=== PATIENT | male | born 1955 | race Caucasian/White ===

== ENCOUNTER → 2024-02-25 16:55 | Outpatient (REF) | payer MEDICARE, SELFPAY | LOC: RAD 16:55 | PROVIDERS: ATTENDING PHYSICIAN Internal Medicine | DX: R60.0 Localized edema (principal) | CPT/HCPCS: 93971 ==

== ENCOUNTER → 2024-03-01 10:51 | Outpatient (REF) | payer MEDICARE, SELFPAY ==
[2024-03-01 13:03] LABS: ALT (SGPT) 26 U/L (0-50); AST (SGOT) 28 U/L (17-59); Albumin 3.7 g/dl (3.5-5.0); Alkaline Phosphatase 62 U/L (38-126); Blood Urea Nitrogen 9 mg/dl (9-20); Calcium 9.6 mg/dl (8.4-10.2); Carbon Dioxide 26 mmol/L (22-30); Chloride 102 mmol/L (98-107); Glucose 148 mg/dl (70-99); Potassium 4.2 mmol/L (3.5-5.1); Sodium 133 mmol/L (135-145); Total Bilirubin 0.6 mg/dl (0.2-1.3); Total Protein 5.5 g/dl (6.3-8.2); eGFR > 60.00
== END ==
LOC: REG 10:51
PROVIDERS: ATTENDING PHYSICIAN Internal Medicine
DX: E11.9 Type 2 diabetes mellitus without complications (principal); I10 Essential (primary) hypertension; E87.1 Hypo-osmolality and hyponatremia
CPT/HCPCS: 36415; 80053

== ENCOUNTER 2024-04-16 03:54 | Emergency (ER) | payer MEDICARE, SELFPAY ==
[2024-04-16 03:56] VITALS: BP 190/93
[2024-04-16 04:00] VITALS: BP 175/87
[2024-04-16 04:10] VITALS: BMI 25.6
[2024-04-16 05:00] VITALS: BP 175/87
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
== END 2024-04-16 05:48 | disposition home or self-care (01) ==
LOC: EMR 03:54
PROVIDERS: EMERGENCY PHYSICIAN Student in an Organized Health Care Education/Training Program; FAMILY PHYSICIAN Internal Medicine
DX: S62.317A Displaced fracture of base of fifth metacarpal bone, left hand, initial encounter for closed fracture (principal); S20.212A Contusion of left front wall of thorax, initial encounter; W19.XXXA Unspecified fall, initial encounter
CPT/HCPCS: 29125; 99284; 71101; 73130

== ENCOUNTER → 2024-07-19 11:35 | Outpatient (REF) | payer MEDICARE, SELFPAY | LOC: RAD 11:35 | PROVIDERS: FAMILY PHYSICIAN Internal Medicine; OTHER PHYSICIAN Specialist | DX: M25.519 Pain in unspecified shoulder (principal) | CPT/HCPCS: 73030 ==

== ENCOUNTER → 2024-10-29 17:16 | Outpatient (REF) | payer MEDICARE, SELFPAY ==
[2024-10-30 10:57] LABS: Rheumatoid Agglutinin Less Than 10 IU (<10 IU)
[2024-10-31 17:03] LABS: CCP Antibody IgG/IgA 2 Units (0-19)
[2024-10-31 18:21] LABS: HLA-B27 Negative (Negative)
== END ==
LOC: REG 17:16
PROVIDERS: ATTENDING PHYSICIAN Physician Assistant; FAMILY PHYSICIAN Orthopaedic Surgery Hand Surgery
DX: L40.52 Psoriatic arthritis mutilans (principal); M79.641 Pain in right hand
CPT/HCPCS: 36415; 86200; 86430; 86812

== ENCOUNTER → 2025-02-09 15:16 | Outpatient (REF) | payer MEDICARE, SELFPAY ==
[2025-02-09 17:14] LABS: Hematocrit 30.3 % (39.0-52.0); Hemoglobin 9.8 g/dL (13.0-18.0); Mean Corp Hgb Conc. 32.3 g/dL (33.0-37.0); Mean Corpuscular Volume 66.7 fL (80.0-94.0); Nucleated Red Blood Cells % 0 % (-); Platelet Count 256 10^3/uL (130-400); Red Cell Dist. Width 17.4 % (11.5-14.5)
[2025-02-09 17:24] LABS: Blood Urea Nitrogen 10 mg/dl (9-20); Calcium 8.8 mg/dl (8.4-10.2); Carbon Dioxide 30 mmol/L (22-30); Chloride 102 mmol/L (98-107); Glucose 99 mg/dl (70-99); Potassium 4.0 mmol/L (3.5-5.1); Sodium 135 mmol/L (135-145); eGFR > 60.00
== END ==
LOC: REG 15:16
PROVIDERS: ATTENDING PHYSICIAN Orthopaedic Surgery; FAMILY PHYSICIAN Internal Medicine
DX: Z01.818 Encounter for other preprocedural examination (principal)
CPT/HCPCS: 36415; 80048; 85025; 93005

== ENCOUNTER 2025-04-27 20:49 | Emergency (ER) | payer MEDICARE, SELFPAY ==
[2025-04-27 20:51] VITALS: BP 164/74
--- NOTE | 2025-04-28 00:01 | ED.GENMED ---
History of Present Illness
General
Chief Complaint: Musculo-Skeletal Complaint
Source: patient
Exam Limitations: none
Time Seen by Provider: 04/27/25 23:39
Nursing documentation reviewed up to this point in time: agreed with
History of Present Illness
History of Present Illness:
69-year-old male with a past medical history of spinal stenosis, osteoarthritis, asthma, who presents emergency department today with concerns of left hip pain and thigh pain beginning around a week and a half ago. Patient describes the pain is
brutal and he reports that it is difficult to morning caregiver certain positions. He has been walking without any difficulty. The patient follows with a pain management doctor who did an injection within the hip joint which provided him no relief. The
patient has since tried rubbing alcohol and lidocaine cream over the area vigorously which has not helped. He does not take any blood thinners. He denies any trauma, any recent falls. He reports that the pain will start in the hip and radiate to
the thigh. Sometimes the pain will start in the back. He denies any urinary fecal incontinence, denies any numbness or tingling in the genital region. He denies any numbness or tingling in his lower extremities. The pain management doctor has
him taking oxycodone 20 mg but he has recently run out and does not see his pain management doctor for another 2 weeks. He reports that he is currently awaiting 2 surgeries: 1 for his lumbar region and another procedure for his fingers which has
been postponed due to his elevated blood pressures. He also is currently following with a steamboat pilot. He also reports that his steamboat pilot has him taking 5 mg of prednisone every day which seem to slightly help his other symptoms. He
denies any fevers or chills, chest pain, shortness of breath, abdominal pain. He denies any burning with urination, urinary frequency, hematuria.
Review of Systems
Review of Systems
All Other Systems: ROS reviewed and negative except as documented in HPI and ROS
Phy Exam
Physical Exam
Physical Exam:
General: Alert, no acute distress.
Skin: Warm, dry. Area of ecchymosis noted to left lateral thigh no tenderness to palpation, no swelling or induration, no asymmetric swelling of the lower extremities.
Head: Normocephalic, atraumatic.
Neck: Supple, trachea midline.
Eye, Ears, Nose, Tongue: Oral mucosa moist.
Cardiovascular: Normal peripheral perfusion, No edema.
2+ PT and PT pulses b/l
Respiratory: Respirations are non-labored.
Abdomen: Soft and non-tender to palpation
Back: Normal range of motion, Normal alignment. No midline spinal tenderness.
Musculoskeletal: No tenderness to palpation of the left hip joint, no tenderness to palpation of the left thigh.
Neurological: Alert and oriented to person, place, time, and situation, No focal neurological deficit observed. Sensation intact.
Psychiatric: Cooperative, appropriate mood & affect.
Course
Orders/Labs/Results
Orders:
Orders
04/27/25 22:28
CR Lumbar Spine 2 Or 3 Views Urgent
Comment:
Reason For Exam: worsening pain
Hip, Left 2-3 Views [CR Hip - LT w/wo Pel 2-3 Vw*] Urgent
Comment:
Reason For Exam: worsening pain, bursitis?
Include a pelvis x-ray?: No
04/27/25 23:56
Ketorolac [Toradol] 30 mg IM NOW STA
Oxycodone/Acetaminophen [Percocet 5/325] 1 tablet PO NOW STA
04/27/25 23:57
Lidocaine [Lidocaine 4% Patch] 1 patch TOPICAL DAILY ONE
Apply Lidocaine patch(s) to:: left hip/left paralumbar
Vital Signs
Initial and Last Documented VS:
Initial Vital Signs
Temp Pulse Resp BP Pulse Ox
98.6 F 86 20 164/74 98
04/27/25 20:51 04/27/25 20:51 04/27/25 20:51 04/27/25 20:51 04/27/25 20:51
Last Documented Vital Signs
Temp Pulse Resp BP Pulse Ox
98.6 F 86 20 164/74 98
04/27/25 20:51 04/27/25 20:51 04/27/25 20:51 04/27/25 20:51 04/28/25 00:01
MDM/Problems Addressed
Differential Diagnosis Includes:
ddx include hip bursitis, osteoarthritis, rheumatoid arthritis, malignant fracture
MDM/Problems Addressed:
Plan:
-check x-rays
-toradol, percocet, lidocaine patch

69-year-old male with a past medical history of spinal stenosis, osteoarthritis, asthma, who presents emergency department today with concerns of left hip pain and thigh pain beginning around a week and a half ago. Patient describes the pain is
brutal and he reports that it is difficult to morning caregiver certain positions. He has no associated fevers or chills, urinary or fecal incontinence, saddle paresthesias. He is able to walk and bear weight on my exam without any difficulty. He
demonstrates a steady gait.
He does have an area of ecchymosis noted to the left lateral thigh. No concern for hematoma. No concern for retroperitoneal hemorrhage. I suspect the bruising is from self-induced trauma as patient reports he has been vigorously rubbing alcohol
and lidocaine cream on the area multiple times a day for the past few days. He was sent for x-rays of the hip and lumbar spine which showed no acute fracture or dislocation but did show some degenerative changes. Patient did have pain improvement
with Percocet, Toradol, and lidocaine patch. He reports that he is not seeing his pain management doctor for some time and is requesting 20 mg oxycodone tablets to bridge the gap. I advised patient that I will give him a few Percocet tablets as
needed and some lidocaine patches but he will need to see his primary pain control physician for continued prescriptions. Patient expressed understanding. Patient stable for discharge.
Chronic conditions affecting care:
asthma, spinal stenosis
*Pulse Oximetry
SaO2: 98
Oxygen Mode of Delivery: Room air
Patient hypoxic: no
*Critical Care Note
Total Time (30-74mins, 75-104mins- exclusive of procedures): Not Applicable
Data Reviewed
Review of Other/Old Records Reveals: Records (Reviewed ER physician documentation from 04/16/2024 patient seen for rib pain and hand pain)
Further Testing Considered But Not Given:
Considered CT scan to look for occult hip fracture however patient is able to bear weight and ambulate without difficulty and without severe pain
ED Attending Note
-
Portions of this chart may have been created with voice recognition software.� Occasional wrong word or��sound alike� substitutions may have occurred due to the inherent limitations of voice recognition software.
Discharge Plan
Departure
Patient Disposition: Home (Routine Discharge)
Date of Disposition: 04/28/25
Time of Disposition: 00:51
Patient with high blood pressure during this ER visit?: Yes
Condition: Good
Discharge Problem:
Hip bursitis, left, Back pain
Instructions: Muscle and Bone Pain (DC), BLOOD PRESSURE
Prescriptions:
New
oxycodone-acetaminophen [Percocet] 5-325 mg tablet
1 tab PO Q4HPRN PRN (Reason: pain) Qty: 8 0RF
lidocaine 5 % adhesive patch,medicated
1 patch topical DAILY Qty: 15 0RF
Referrals:
Pedro Lindsey MD [Active, Anesthesiology] - Call in 1-3 days for appt
Cecilio Rodriguez MD [Active, Orthopedics] - Call in 1-3 days for appt
Pratik Turner MD [Family Provider, Internal Medicine]
Activity Restrictions/Additional Instructions:
Please continue to monitor your symptoms. I would avoid rubbing the area with the alcohol and lidocaine cream.
Please continue to monitor your symptoms.
Please follow-up with your pain management doctor.
PLEASE RETURN TO THE ER SHOULD YOU DEVELOP URINARY OR FECAL INCONTINENCE, FEVERS OR CHILLS, INABILITY TO AMBULATE, NUMBNESS OR TINGLING IN THE GROIN, CHEST PAIN, SHORTNESS OF BREATH, OR ANY OTHER SIGNS OR SYMPTOMS WORRISOME TO YOU.
Interventions
Interventions:
*Risk Screen - Suicide Last Done: 04/27/25 22:53
*General Assessment Last Done: 04/27/25 20:51
*Neglect/Abuse Screening Last Done: 04/27/25 22:53
*ED- Fall Risk Assessment Last Done: 04/28/25 01:01
*ED COVID-19 Vaccine History Last Done: 04/27/25 22:24
*ED Influenza Vaccine History Last Done: 04/27/25 22:24
*Nursing Disposition Last Done: 04/28/25 01:01
ED-Musculoskeletal Assessment Last Done: 04/27/25 22:24
Discharge Date and Time
Discharge Date/Time: 04/28/25 01:03
Print Language: LIBERIAN
[2025-04-28] MEDS: PERCOCET 5/325 1 TABLET PO (00:08)
[2025-04-28] MEDS: TORADOL 30 MG IM (00:09)
[2025-04-28] MEDS: LIDOCAINE 4% PATCH 1 PATCH TOPICAL (00:09)
== END 2025-04-28 01:03 | disposition home or self-care (01) ==
LOC: EMR 20:49
PROVIDERS: EMERGENCY PHYSICIAN Emergency Medicine; FAMILY PHYSICIAN Internal Medicine
DX: M70.72 Other bursitis of hip, left hip (principal); M54.50 Low back pain, unspecified; J45.909 Unspecified asthma, uncomplicated; M16.12 Unilateral primary osteoarthritis, left hip; M47.816 Spondylosis without myelopathy or radiculopathy, lumbar region
CPT/HCPCS: 99284; 96372; 72100; 73502